=== PATIENT | male | born 1985 | race Two or more races ===

== ENCOUNTER 2020-10-01 12:51 | Emergency (ER) | payer OTHER ==
[~2020-10-01] VITALS: Ht 172.7 cm; Wt 95.7 kg
== END 2020-10-01 20:16 | disposition home or self-care (01) ==
LOC: ER 12:51
DX: K57.92 Diverticulitis of intestine, part unspecified, without perforation or abscess without bleeding (principal); R10.84 Generalized abdominal pain

== ENCOUNTER 2020-12-30 10:45 | Inpatient (IN) | payer OTHER ==
[~2020-12-30] VITALS: Ht 172.7 cm; Wt 87.1 kg
[2020-12-30] MEDS ORDERED: PROBIOTIC1 EAC2 PO (13:52)
[2021-01-15] MEDS ORDERED: PERCOCET 5-3251 EACH PO (11:43)
[2021-01-15] MEDS ORDERED: SURFAK240 M1 PO (11:44)
[2021-01-15] MEDS ORDERED: PEPCID AC20 MG PO (11:45)
== END 2021-01-15 12:34 | disposition home or self-care (01) | DRG 329 ==
LOC: SURH 01-03 10:45 → O/R 01-09 05:26 → SURG 01-09 05:26 → SURH 01-09 07:00 → SURG 01-09 12:15 → SURH 01-10 10:45 → SURG 01-15 12:34
PROVIDERS: ADMIT Surgery; ATTEND Surgery
PROC: 0DTP4ZZ Resection of Rectum, Percutaneous Endoscopic Approach (ICD-10-PCS; 2021-01-09)
PROC: 0W3G0ZZ Control Bleeding in Peritoneal Cavity, Open Approach (ICD-10-PCS; 2021-01-09)
PROC: 0DJD8ZZ Inspection of Lower Intestinal Tract, Via Natural or Artificial Opening Endoscopic (ICD-10-PCS; 2021-01-09)
PROC: 0DBN4ZZ Excision of Sigmoid Colon, Percutaneous Endoscopic Approach (ICD-10-PCS; principal; 2021-01-09 07:00)
PROC: 30233N1 Transfusion of Nonautologous Red Blood Cells into Peripheral Vein, Percutaneous Approach (ICD-10-PCS; 2021-01-11)
DX: K57.20 Diverticulitis of large intestine with perforation and abscess without bleeding (principal); K65.1 Peritoneal abscess; K91.841 Postprocedural hemorrhage of a digestive system organ or structure following other procedure; D62 Acute posthemorrhagic anemia; Y83.8 Other surgical procedures as the cause of abnormal reaction of the patient, or of later complication, without mention of misadventure at the time of the procedure; Y92.238 Other place in hospital as the place of occurrence of the external cause; Z53.31 Laparoscopic surgical procedure converted to open procedure

== ENCOUNTER 2021-01-17 20:30 | Emergency (ER) | payer OTHER ==
[~2021-01-17] VITALS: Ht 172.7 cm; Wt 86.2 kg
[~2021-01-17 20:30] MED LIST: PEPCID AC20 MG PO; PERCOCET 5-3251 EACH PO; PROBIOTIC1 EAC2 PO; SURFAK240 M1 PO
[2021-01-17] MEDS ORDERED: NEURIN (21:28)
== END 2021-01-18 00:17 | disposition home or self-care (01) ==
LOC: ER 20:30
DX: R23.8 Other skin changes (principal)

== ENCOUNTER 2021-04-15 22:01 | Emergency (ER) | payer OTHER ==
[~2021-04-15] VITALS: Ht 172.7 cm; Wt 85.7 kg
[~2021-04-15 22:01] MED LIST changes: +NEURIN
[2021-04-16] MEDS ORDERED: LEVSIN/SL0.125 MG SL (05:24)
== END 2021-04-16 05:32 ==
LOC: ER 22:01
DX: K57.30 Diverticulosis of large intestine without perforation or abscess without bleeding (principal)

== ENCOUNTER 2021-10-22 00:11 | Emergency (ER) | payer OTHER ==
[~2021-10-22] VITALS: Ht 167.6 cm; Wt 95.3 kg
[~2021-10-22 00:11] MED LIST changes: +LEVSIN/SL0.125 MG SL
== END 2021-10-22 11:27 | disposition home or self-care (01) ==
LOC: ER 00:11
DX: K57.90 Diverticulosis of intestine, part unspecified, without perforation or abscess without bleeding (principal); R10.32 Left lower quadrant pain; Z88.0 Allergy status to penicillin

== ENCOUNTER 2023-03-11 12:03 | Emergency (ER) | payer OTHER ==
[~2023-03-11] VITALS: Ht 170.2 cm; Wt 99.8 kg
== END 2023-03-11 15:33 | disposition home or self-care (01) ==
LOC: ER 12:03
DX: S73.102A Unspecified sprain of left hip, initial encounter (principal); X50.1XXA Overexertion from prolonged static or awkward postures, initial encounter; Y93.9 Activity, unspecified; Y92.9 Unspecified place or not applicable; Y99.9 Unspecified external cause status

== ENCOUNTER 2023-04-19 14:47 | Emergency (ER) | payer OTHER ==
[~2023-04-19] VITALS: Ht 170.2 cm; Wt 97.5 kg
== END 2023-04-19 17:20 | disposition home or self-care (01) ==
LOC: ER 14:47
DX: S83.207A Unspecified tear of unspecified meniscus, current injury, left knee, initial encounter (principal); X58.XXXA Exposure to other specified factors, initial encounter; Y93.9 Activity, unspecified; Y92.9 Unspecified place or not applicable; Y99.9 Unspecified external cause status; Z88.0 Allergy status to penicillin

== ENCOUNTER 2023-06-02 14:05 | Emergency (ER) | payer OTHER ==
[~2023-06-02] VITALS: Ht 170.2 cm; Wt 104.3 kg
[2023-06-02] MEDS ORDERED: FELDENE20 MG PO (15:04)
[2023-06-02 17:25] LABS: PH,URINE 6.5 (5.0-8.0); URINE APPEARANCE Clear; URINE BILIRRUBIN Negative (NEGATIVE); URINE BLOOD Negative; URINE COLOR Yellow; URINE GLUCOSE Negative (NEGATIVE); URINE LEUKOCYTE Negative; URINE NITRATE Negative; URINE PROTEIN Negative (NEGATIVE); URINE UROBILINOGEN 0.2 E.U./dl
[2023-06-02 17:26] LABS: HEMATOCRIT 42.8 % (39.0-48.0); HEMOGLOBIN 14.4 g/dL (13-16.00); MEAN CELL VOLUME 80.6 fL (80.0-100.00); MEAN CORPUSCULAR HGB CONC 33.5 g/dl (32.0-36.0); PLATELET COUNT 290 K/uL (150-450); RED BLOOD COUNT 5.31 M/uL (4.00-6.00); RED CELL DISTRIBUTION WIDTH 13.6 % (11.5-14.5)
[2023-06-02 17:28] LABS: URINE WBC 1.8 uL (0.0-23.2)
[2023-06-02 17:38] LABS: URINE EPITHELIAL CELLS 0.1 uL (0.0-38.8); URINE RBC 0.5 uL (0.0-20.8)
[2023-06-02 17:55] LABS: CREATININE SERUM 1.09 mg/dL (0.70-1.30); GFR 75.31; POTASSIUM 4.26 mEq/L (3.5-5.1)
== END 2023-06-03 01:41 | disposition home or self-care (01) ==
LOC: ER 14:05
PROVIDERS: General Practice
DX: K29.70 Gastritis, unspecified, without bleeding (principal); K57.30 Diverticulosis of large intestine without perforation or abscess without bleeding; Z88.0 Allergy status to penicillin

== ENCOUNTER 2024-05-23 18:16 | Emergency (ER) | payer OTHER ==
[~2024-05-23] VITALS: Ht 172.7 cm; Wt 102.1 kg
[~2024-05-23 18:16] MED LIST changes: +FELDENE20 MG PO
[2024-05-23 18:28] VITALS: BP 150/68; O2SAT 98
[2024-05-23] MEDS ORDERED: METRONIDAZOLE/SODIUM CHLORIDE 500 MG/100 ML PIGGYBACK IV ONE ×2 (20:30→20:58)
[2024-05-23] MEDS ORDERED: 0.9 % SODIUM CHLORIDE 1,000 ML IV ONE (20:30)
[2024-05-23] MEDS ORDERED: KETOROLAC TROMETHAMINE 60 MG VIAL IM ONE ×2 (20:30→20:57)
[2024-05-23] MEDS ORDERED: FAMOtidine 10 MG/ML (4ML VIAL) IV ONE (20:30)
[2024-05-23] MEDS ORDERED: CIPROFLOXACIN IN 5 % DEXTROSE 400 MG/200 ML PIGGYBAG IV ONE ×2 (20:30→20:58)
[2024-05-23] MEDS ORDERED: FAMOTIDINE/PF 20 MG/2 ML VIAL ONE (20:58)
[2024-05-23 21:02] LABS: HEMATOCRIT 44.9 % (39.0-48.0); HEMOGLOBIN 14.7 g/dL (13-16.00); MEAN CELL VOLUME 82.9 fL (80.0-100.00); MEAN CORPUSCULAR HEMOGLOBIN 27.2 pg (27.00-32.0); MEAN CORPUSCULAR HGB CONC 32.8 g/dl (32.0-36.0); PLATELET COUNT 257 K/uL (150-450); RED BLOOD COUNT 5.42 M/uL (4.00-6.00); RED CELL DISTRIBUTION WIDTH 13.3 % (11.5-14.5)
[2024-05-23 21:04] LABS: PH,URINE 6.5 (5.0-8.0); URINE APPEARANCE Clear; URINE BILIRRUBIN Negative (NEGATIVE); URINE BLOOD Negative; URINE COLOR Yellow; URINE GLUCOSE Negative (NEGATIVE); URINE KETONE Negative (NEGATIVE); URINE LEUKOCYTE Negative; URINE NITRATE Negative; URINE PROTEIN Negative (NEGATIVE); URINE UROBILINOGEN 0.2 E.U./dl
[2024-05-23 21:14] LABS: URINE BACTERIA 2.4 uL (0.0-1933); URINE EPITHELIAL CELLS 0.2 uL (0.0-38.8); URINE RBC 0.2 uL (0.0-20.8); URINE WBC 0.5 uL (0.0-23.2)
[2024-05-23 21:27] LABS: INR 1.03; PARTIAL THROMBOPLASTIN TIME 28.8 SECONDS (22.0-34.0); PROTHROMBIN TIME 11.2 SECONDS (9.0-11.5)
[2024-05-23 21:34] LABS: ALBUMIN 4.2 gm/dL (3.4-5.0); BILIRUBIN TOTAL 0.82 mg/dL (0.3-1.2); CALCIUM 9.7 mg/dL (8.5-10.1); CREATININE SERUM 1.05 mg/dL (0.70-1.30); GFR 78.23; POTASSIUM 3.63 mEq/L (3.5-5.1); TOTAL PROTEIN 8.2 gm/dL (6.4-8.2)
[2024-05-23] MEDS ORDERED: PEPCID AC20 MG PO (23:53)
[2024-05-23] MEDS ORDERED: DICY20TA PO (23:53)
[2024-05-23] MEDS ORDERED: PROBIOTIC1 EAC2 PO (23:53)
== END 2024-05-24 00:35 | disposition home or self-care (01) ==
LOC: ER 18:18
PROVIDERS: General Practice
DX: R10.32 Left lower quadrant pain (principal); K57.32 Diverticulitis of large intestine without perforation or abscess without bleeding; Z88.0 Allergy status to penicillin; K29.70 Gastritis, unspecified, without bleeding
CPT/HCPCS: 36415; 74177; 96365; 96366; 99284; J0696; J1885; J3490; J7030; Q9965

== ENCOUNTER → 2024-10-19 | Emergency (ER) | payer OTHER ==
[~2024-10-19] VITALS: Ht 172.7 cm; Wt 101.6 kg
[~2024-10-19] MED LIST changes: +DICY20TA PO
[2024-10-19 21:57] VITALS: BP 120/82; O2SAT 99
== END | disposition left against medical advice (07) ==
LOC: ER 21:38
DX: Z53.21 Procedure and treatment not carried out due to patient leaving prior to being seen by health care provider (principal)

== ENCOUNTER 2024-12-11 12:17 | Emergency (ER) | payer OTHER ==
[~2024-12-11] VITALS: Ht 170.2 cm; Wt 101.2 kg
[2024-12-11] MEDS ORDERED: KETOROLAC TROMETHAMINE 60 MG VIAL IM ONE (13:30)
[2024-12-11 13:58] LABS: BASO % 0.7 % (0.1-1.2); EOS # 0.03 (0.04-0.54); EOS % 0.4 % (0.7-7.0); LYMPH # 2.46 (1.18-3.74); LYMPH % 33.9 % (19.3-53.1); MEAN PLATELET VOLUME 9.90 fl (9.4-12.4); MONO # 0.54 (0.24-0.82); MONO % 7.4 % (4.7-12.5); NEUT # 4.17 (1.56-6.13); NEUT % 57.5 % (34.0-71.1); RED CELL DISTRIBUTION WIDTH 12.6 % (11.6-14.4)
[2024-12-11 14:13] LABS: URINE APPEARANCE Clear; URINE BILIRRUBIN Negative (NEGATIVE); URINE BLOOD Negative; URINE COLOR Yellow; URINE GLUCOSE Negative (NEGATIVE); URINE KETONE Negative (NEGATIVE); URINE LEUKOCYTE Negative; URINE NITRATE Negative; URINE PROTEIN Negative (NEGATIVE); URINE UROBILINOGEN 0.2 E.U./dl
[2024-12-11 14:20] LABS: ALT/SGPT 51.0 U/L (12-78); AST/SGOT 24.0 U/L (15-37); BILIRUBIN TOTAL 0.59 mg/dL (0.3-1.2); BUN CREA RATIO 11.0 (7.0-25.0); CREATININE SERUM 1.04 mg/dL (0.70-1.30); GFR 79.1; GLOBULINA 3.9 G/DL (2.4-3.5); GLUCOSE FASTING 111.0 mg/dL (65-100); OSMOLALITY SERUM 278.0 MOSM/KG (275-295)
[2024-12-11 14:29] LABS: URINE BACTERIA 1.1 uL (0.0-1933); URINE CAST 0.00 uL (0.0-1.40); URINE EPITHELIAL CELLS 0.0 uL (0.0-38.8); URINE RBC 0.8 uL (0.0-20.8); URINE WBC 0.6 uL (0.0-23.2)
[2024-12-11] MEDS ORDERED: LEVSIN/SL0.125 MG SL (15:54)
[2024-12-11] MEDS ORDERED: CIPRO500 MG PO (15:54)
[2024-12-11] MEDS ORDERED: METRONIDAZOLE500 MG PO (15:54)
== END 2024-12-12 18:16 | disposition home or self-care (01) ==
LOC: ER 12:17
PROVIDERS: General Practice
DX: K57.30 Diverticulosis of large intestine without perforation or abscess without bleeding (principal); M62.838 Other muscle spasm; Z88.0 Allergy status to penicillin; K76.0 Fatty (change of) liver, not elsewhere classified